=== PATIENT | female | born 1930 | race Caucasian/White ===

== ENCOUNTER 2017-08-05 13:13 | Inpatient (IN) | payer OTHER ==
[~2017-08-05] VITALS: Ht 129.5 cm; Wt 49.9 kg
[~2017-08-05 13:13] MED LIST: ATENOLOL25 MG PO; CALCIUM CARB PO; CLOPIDOGREL PO; CRESTOR PO; CRESTOR5 M1 PO; CYCLOBENZAPRINE5 MG PO; DEXILANT; DEXILANT PO; DEXILANT60 M1 PO; IBANDRONATE SO150 M1 PO; LEVOTHYROXINE0.05 M2 PO; LEXAPRO5 M1 PO; MELOXICAM15 M1 PO; MONTELUKAST SOD10 M1 PO; NEXIUM PO; NEXIUM40 MG PO; NORCO1 TA2 PO; PLA75 PO; VOLTAREN TOP; ZES10 PO
[2017-08-05 13:29] VITALS: Ht 129.5 cm; Wt 49.9 kg
[2017-08-05 14:16] LABS: BASOPHIL % 0.2 % (0-2); PLATELET COUNT 229 x10^3mcL (130-400); RED CELL DISTRIBUTION WIDTH 15.4 % (11.5-14.5)
[2017-08-05 14:28] LABS: CALCIUM 8.6 mg/dL (8.5-10.1); CARBON DIOXIDE 29.2 mmol/L (21-32); CHLORIDE SERUM 101 mmol/L (98-107); CREATININE SERUM 0.7 mg/dL (0.6-1.0); GLUCOSE SERUM 129 mg/dL (74-106); POTASSIUM SERUM 3.9 mmol/L (3.5-5.1); SODIUM SERUM 138 mmol/L (136-145)
[2017-08-05 14:31] LABS: ALBUMIN 3.7 g/dL (3.4-5.0); AMYLASE 43 U/L (25-115); AST/SGOT 50 U/L (15-37); CHOLESTEROL 145 mg/dL (<200); LIPASE 138 IU/L (73-393); TOTAL PROTEIN, SERUM 7.5 g/dL (6.4-8.2)
[2017-08-05 14:52] LABS: microscopic required? YES; urine erythrocyte 2+ (NEGATIVE)
[2017-08-05 15:15] LABS: ALKALINE PHOSPHATASE 82 U/L (46-116); ALT/SGPT 34 U/L (14-59); BILIRUBIN TOTAL 0.4 mg/dL (0.20-1.00); HDL CHOLESTEROL 41 mg/dL (40-60); T4(THYROXINE) 9.2 ug/dL (4.7-13.3)
[2017-08-05 17:35] LABS: MAGNESIUM 1.9 mg/dL (1.8-2.4); PHOSPHOROUS 3.4 mg/dL (2.5-4.9)
[2017-08-05 17:47] VITALS: BP 140/41
[2017-08-05 20:57] VITALS: BP 124/53
[2017-08-06 06:12] VITALS: BP 148/58
[2017-08-06 07:14] LABS: BASOPHIL % 0.2 % (0-2); PLATELET COUNT 162 x10^3mcL (130-400)
[2017-08-06 07:18] LABS: CALCIUM 8.6 mg/dL (8.5-10.1); CARBON DIOXIDE 25.4 mmol/L (21-32); CHLORIDE SERUM 107 mmol/L (98-107); CREATININE SERUM 0.7 mg/dL (0.6-1.0); GLUCOSE SERUM 121 mg/dL (74-106); PHOSPHOROUS 2.8 mg/dL (2.5-4.9); POTASSIUM SERUM 3.5 mmol/L (3.5-5.1); SODIUM SERUM 139 mmol/L (136-145)
[2017-08-06 07:36] LABS: RED CELL DISTRIBUTION WIDTH 15.7 % (11.5-14.5)
[2017-08-06 09:18] VITALS: BP 146/64
[2017-08-06 13:13] VITALS: BP 126/60
[2017-08-06 16:34] VITALS: BP 112/40; BP 113/70
[2017-08-06 21:01] VITALS: BP 170/63
[2017-08-07 05:25] VITALS: BP 96/52
[2017-08-07 06:32] LABS: CARBON DIOXIDE 29.5 mmol/L (21-32); CHLORIDE SERUM 106 mmol/L (98-107); CREATININE SERUM 0.8 mg/dL (0.6-1.0); GLUCOSE SERUM 113 mg/dL (74-106); MAGNESIUM 2.1 mg/dL (1.8-2.4); PHOSPHOROUS 3.1 mg/dL (2.5-4.9); POTASSIUM SERUM 3.7 mmol/L (3.5-5.1); SODIUM SERUM 139 mmol/L (136-145)
[2017-08-07 06:40] LABS: BASOPHIL % 0.4 % (0-2); PLATELET COUNT 164 x10^3mcL (130-400)
[2017-08-07 06:53] LABS: RED CELL DISTRIBUTION WIDTH 15.8 % (11.5-14.5)
[2017-08-07 09:41] VITALS: BP 92/56
[2017-08-07 13:05] VITALS: BP 92/56
[2017-08-07 15:04] VITALS: BP 124/55
== END 2017-08-07 15:45 | disposition home health service (06) | DRG 391 ==
LOC: ED 13:13 → MU 16:15 → DU 16:15 → MU 08-06 18:32
PROVIDERS: Emergency Medicine; Family Medicine
DX: A08.4 Viral intestinal infection, unspecified (principal); N17.0 Acute kidney failure with tubular necrosis; I10 Essential (primary) hypertension; E86.0 Dehydration; E03.9 Hypothyroidism, unspecified; K29.70 Gastritis, unspecified, without bleeding; F32.9 Major depressive disorder, single episode, unspecified; R31.9 Hematuria, unspecified; M19.90 Unspecified osteoarthritis, unspecified site; M81.0 Age-related osteoporosis without current pathological fracture; K44.9 Diaphragmatic hernia without obstruction or gangrene; Z68.32 Body mass index [BMI] 32.0-32.9, adult
CPT/HCPCS: 82962; 83880; 87046; 87046-59; 97110-GP; 97116-GP; 97530-GP; J2405; J7030; Q9966; Q9967

== ENCOUNTER 2018-09-30 16:24 | Emergency (ER) | payer OTHER, MEDICAID ==
[~2018-09-30] VITALS: Ht 162.6 cm; Wt 60.3 kg
[2018-09-30 16:28] VITALS: Ht 162.6 cm; Wt 60.3 kg
[2018-09-30 17:09] VITALS: BP 162/77
== END 2018-09-30 17:09 | disposition home or self-care (01) ==
LOC: ED 16:24
DX: L29.9 Pruritus, unspecified (principal); R21 Rash and other nonspecific skin eruption; I10 Essential (primary) hypertension; F32.9 Major depressive disorder, single episode, unspecified; M81.0 Age-related osteoporosis without current pathological fracture; Z88.0 Allergy status to penicillin